=== PATIENT | male | born 1950 | race Asian ===

== ENCOUNTER → 2017-11-19 | Day surgery (SDC) | payer BC, MEDICARE ==
[2017-11-17 15:10] LABS: BASOPHILS % 0.7 % (0.0-1.0); EOSINOPHILS # (AUTO) 0.1 (0.0-0.4); EOSINOPHILS % 2.7 % (0.0-6.0); HEMATOCRIT 41.2 % (38.2-49.6); HEMOGLOBIN 14.2 g/dL (14.0-18.0); LYMPHOCYTES # (AUTO) 1.7 (1.0-3.2); LYMPHOCYTES % 36.7 % (18.0-39.1); MEAN CORPUSCULAR HEMOGLOBIN 31.4 pg (28-32); MEAN CORPUSCULAR HGB CONC 34.5 g/dL (31-35); MEAN CORPUSCULAR VOLUME 91.2 fL (81-99); MONOCYTES # (AUTO) 0.4 (0.2-0.8); MONOCYTES % 9.6 % (4.4-11.3); NEUTROPHILS # (AUTO) 2.3 (2.1-6.9); NEUTROPHILS % 50.1 % (38.7-80.0); PLATELET COUNT 162 x10e3/uL (140-360); RED BLOOD COUNT 4.52 x10e6/uL (4.3-5.7); RED CELL DISTRIBUTION WIDTH 12.8 % (11.7-14.4)
[2017-11-17 15:22] LABS: ANION GAP 10.2 mmol/L (8-16); BLOOD UREA NITROGEN 18 mg/dL (7-26); BUN/CREATININE RATIO 18 (6-25); CALCIUM 9.7 mg/dL (8.4-10.2); CARBON DIOXIDE 32 mmol/L (22-29); CHLORIDE 104 mmol/L (98-107); CREATININE, SERUM 1.01 mg/dL (0.72-1.25); EST GLOMERULAR FILTRATION RATE > 60 ML/MIN (60-); GLUCOSE 115 mg/dL (74-118); POTASSIUM 3.2 mmol/L (3.5-5.1); SODIUM 143 mmol/L (136-145)
--- NOTE | 2017-11-17 18:23 | Diagnostic Imaging Report ---
PROCEDURE: Frontal and lateral views of the chest. COMPARISON: None. INDICATIONS: PRE-OP, RENAL SURGERY FINDINGS: Lines/tubes: None. Lungs: The lungs are well inflated. 1.0 cm nodular density projecting over the anterior aspect of the right sixth rib on the frontal view likely represent a nipple shadow. There is no evidence of pneumonia or pulmonary edema. Pleura: There is no pleural effusion or pneumothorax. Heart and mediastinum: Cardiac silhouette is unremarkable. The pulmonary vasculature is normal. Bones: No acute bony abnormality. IMPRESSION: 1. No acute cardiopulmonary abnormalities. 2. 1.0 cm nodular density projecting in the right lower lung likely represents a nipple shadow. Recommend repeat chest PA and lateral with nipple markers to exclude nodule. Fuad Valenzuela M.D. Dictated by: Fuad Valenzuela M.D. on 11/17/2017 at 18:24 Electronically approved by: Fuad Valenzuela M.D. on 11/17/2017 at 18:24
[~2017-11-19] MED LIST: AMLODIPINE BESY10 MG PO; ATORVASTATIN CA20 MG PO; CEFTRIAXONE SOD 1 GM VIAL ONE; DEXAMETHASONE SOD PHOS INJ 4 MG/ML VIAL ONE; EPHEDRINE SULFATE INJ 50 MG/10 ML SYR ONE; FENTANYL CITRATE/PF 100MCG/2 ML INJ ONE; FINASTERIDE5 MG PO; HYDROCHLOROTHIA25 MG PO; IOPAMIDOL 610MG/1ML 300 MG/ML VIAL IV ONE; LIDOCAINE HCL 2% LOCAL INJ 5 ML SDV VIAL INJ ONE; METOPROLOL SUC100 MG PO; MIDAZOLAM HCL 2 MG/2 ML VIAL ONE; ONDANSETRON HCL INJ 2 MG/ML VIAL ONE; PROPOFOL IV EMULSION 10 MG/ML 20 ML VIAL ONE; SEVOFLURANE INHAL SOLN 250 ML PEN BTL ONE
--- OUTSIDE RECORDS SUMMARY | 2017-11-19 06:49 | XMS REPORT ---
Author Author [facility] Address Unknown Phone Unavailable Care Team Providers Care Materials Handling Coordinator Name Role Phone DAVID BERUMEN Unavailable Unavailable Problems This patient has no known problems. Allergies, Adverse Reactions, Alerts This patient has no known allergies or adverse reactions. Medications This patient has no known medications. Results Test Description Test Time Test Comments Text Results Atomic Results Result Comments CHEST 2 VIEWS [place] [address] Patient Name: CARRINGTON HERNANDEZ V MR #: [id number] : 1950 Age/Sex: 67/M Req #: [id number] Adm Physician: Ordered by: DAVID BERUMEN MD Report #: [id number] Location: OR Room/Bed: Procedure: [id number] DX/ CHEST 2 VIEWS Exam Date: 11/17/17 Exam Time: 1540 REPORT STATUS: Signed PROCEDURE: Frontal and lateral views of the chest. COMPARISON: None. INDICATIONS: PRE-OP, RENAL SURGERY FINDINGS: Lines/tubes: None. Lungs: The lungs are well inflated. 1.0 cm nodular density projecting over the anterior aspect of the right sixth rib on the frontal view likely represent a nipple shadow. There is no evidence of pneumonia or pulmonary edema. Pleura: There is no pleural effusion or pneumothorax. Heart and mediastinum: Cardiac silhouette is unremarkable. The pulmonary vasculature is normal. Bones: No acute bony abnormality. IMPRESSION: 1. No acute cardiopulmonary abnormalities. 2. 1.0 cm nodular density projecting in the right lower lung likely represents a nipple shadow. Recommend repeat chest PA and lateral with nipple markers to exclude nodule. Mg Valenzuela M.D. Dictated by: Mg Valenzuela M.D. on 11/17/2017 at 18:24 Electronically approved by: Mg Valenzuela M.D. on 11/17/2017 at 18:24 Dictated By: MG VALENZUELA MD 23 Transcribed By: KYLIE on 11/17/171823 COPY TO: DAVID BERUMEN MD
--- NOTE | 2017-11-19 09:04 | Operative Report ---
DATE OF PROCEDURE: November 19, 2017 PREOPERATIVE DIAGNOSIS: Bladder calculi. POSTOPERATIVE DIAGNOSES 1. Bladder calculi. 2. Gross hematuria. PROCEDURES 1. Cystourethroscopy with laser litholapaxy, less than 2.5 cm. 2. Cystourethroscopy with clot evacuation and fulguration of bleeders. ANESTHESIA: General. ESTIMATED BLOOD LOSS: Minimal. COMPLICATIONS: None. INDICATIONS FOR PROCEDURE: Mr. Pineda is a 67-year-old male who had prostate cancer, and now it is clearly evident that he has had radiation despite denying this. The patient on office cystoscopy had bladder calculi. He and I had a long discussion about alternatives, risks and benefits including doing nothing, laser lithotripsy. He voiced understanding of the options, alternatives, risks, and benefits and elected to proceed. PROCEDURE IN DETAIL: After informed consent was obtained, the patient was placed supine on the operating table, and underwent general anesthesia by the anesthesia service. Was placed in the dorsal lithotomy position, and sterilely prepped and draped for cystoscopy. Attempt was made to insert a 22.5-Turkish cystoscope and this failed secondary to bladder neck contracture, as well as urethral stricture disease. A 19.8-Turkish cystoscope was managed to be introduced in the bladder. Panendoscopy of the bladder revealed pallor and neovascularity consistent with radiation cystitis. There were several small calculi in approximately 1.5 cm in total diameter, which were firmly attached to the wall. Utilizing the micron laser fiber, these were ablated and evacuated as dust. While lasering, it became readily apparent especially the lesion on the right lateral wall during lasering caused some tremor of the bladder wall. Various seeds from radiation. All active bleeding clots were evacuated. Utilizing the [place] and the coag setting, all bleeding varices were meticulously coagulated. No flow whatsoever. There was no active bleeding. Hemostasis was excellent. The bladder was drained. The patient was awakened from anesthesia and transported to the recovery room in excellent condition. Job#: [id number]
== END | disposition home or self-care (01) ==
LOC: OR 06:47
PROVIDERS: ATTEND Urology
DX: N21.0 Calculus in bladder (principal); C61 Malignant neoplasm of prostate; N32.89 Other specified disorders of bladder; N35.9 Urethral stricture, unspecified; N28.1 Cyst of kidney, acquired; N30.41 Irradiation cystitis with hematuria; N40.1 Benign prostatic hyperplasia with lower urinary tract symptoms; N13.8 Other obstructive and reflux uropathy; I10 Essential (primary) hypertension; Z01.810 Encounter for preprocedural cardiovascular examination; Z01.812 Encounter for preprocedural laboratory examination; Z01.818 Encounter for other preprocedural examination; Z87.891 Personal history of nicotine dependence
CPT/HCPCS: 36415; 52001; 52317; 71046; 80048; 85025; 88300; 93005; J0696; J1100; J2001; J2250; J2405; Q9967